=== PATIENT | female | born 1995 | race Hispanic/Latino ===

== ENCOUNTER 2017-10-08 12:50 | Emergency (ER) | payer OTHER, SELFPAY ==
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
== END 2017-10-08 15:19 | disposition home or self-care (01) ==
LOC: ERS 12:50
DX: S09.90XA Unspecified injury of head, initial encounter (principal); S83.92XA Sprain of unspecified site of left knee, initial encounter; Z79.899 Other long term (current) drug therapy; V43.52XA Car driver injured in collision with other type car in traffic accident, initial encounter
CPT/HCPCS: 70450